=== PATIENT | male | born 1980 | race Caucasian/White ===

== ENCOUNTER 2019-07-21 19:44 | Emergency (ER) | payer OTHER, BC ==
[2019-07-21] MEDS ORDERED: Sodium Chloride 0.9% 10 ML Syringe FLUSH PRN (20:08)
--- NOTE | 2019-07-21 20:08 | EDM.PDOC ---
ED HPI GENERAL MEDICAL PROBLEM - General Chief Complaint: Upper Extremity Injury/Pain Stated Complaint: LT SHOULDER DISLOCATED Time Seen by Provider: 07/21/19 20:02 Source of Information: Reports: Patient History Limitations: Reports: No Limitations - History of Present Illness INITIAL COMMENTS - FREE TEXT/NARRATIVE: Patient is a 39-year-old male who presents with complaints of left shoulder pain. He states he was walking down the stairs and he slipped. He had one hand on the rail and then reached back with his left arm to try to catch himself on the steps, injuring his left shoulder. He has no history of previous injury to this shoulder. Right Upper Arm Pain Score (Numeric/FACES): 5 - Related Data Allergies Allergy/AdvReac Type Severity Reaction Status Date / Time No Known Allergies Allergy Verified 07/21/19 20:02 Home Meds: Home Meds . [No Known Home Meds] 07/21/19 [History] Review of Systems - Review of Systems Review Of Systems: Comprehensive ROS is negative, except as noted in HPI. ED EXAM, GENERAL - Physical Exam Exam: See Below Exam Limited By: No Limitations General Appearance: Alert, WD/WN, No Apparent Distress Respiratory/Chest: No Respiratory Distress, Lungs Clear, Normal Breath Sounds, No Accessory Muscle Use, Chest Non-Tender Cardiovascular: Normal Peripheral Pulses, Regular Rate, Rhythm, No Edema, No Gallop, No JVD, No Murmur, No Rub Extremities: Other (left shoulder is visibly dislocated. Appears to be dislocated anteriorly. CMS intact distal to the injury.) Neurological: Alert, Oriented, CN II-XII Intact, Normal Cognition, Normal Gait, Normal Reflexes, No Motor/Sensory Deficits Psychiatric: Normal Affect, Normal Mood Skin Exam: Warm, Dry, Intact, Normal Color, No Rash Course - Vital Signs Last Recorded V/S: Last Vital Signs Temp 98.8 F 07/21/19 20:05 Pulse 60 07/21/19 20:05 Resp 16 07/21/19 20:05 BP 150/103 H 07/21/19 20:05 Pulse Ox 98 07/21/19 20:05 - Orders/Labs/Meds Orders: Active Orders 24 hr Category Date Time Status Peripheral IV Care [RC] . DIRECTED Care 07/21/19 20:08 Active DME for Discharge [COMM] Stat Oth 07/21/19 20:44 Ordered Peripheral IV Insertion Adult [OM.PC] Stat Oth 07/21/19 20:08 Ordered Meds: Medications Discontinued Medications Generic Name Dose Route Start Last Admin Trade Name Kristy PRN Reason Stop Dose Admin Fentanyl 50 mcg 07/21/19 20:42 07/21/19 21:39 Sublimaze IVPUSH 07/21/19 20:43 Not Given ONETIME ONE Fentanyl Confirm 07/21/19 20:55 07/21/19 21:39 Sublimaze Administered 07/21/19 20:56 Not Given Dose 100 mcg .ROUTE .STK-MED ONE Fentanyl 50 mcg 07/21/19 21:30 07/21/19 21:36 Sublimaze IVPUSH 07/21/19 21:31 50 mcg ONETIME ONE Administration Lactated Ringer's Confirm 07/21/19 21:01 07/21/19 21:39 Ringers, Lactated Administered 07/21/19 21:02 100 mls/hr Dose Administration 1,000 mls @ as directed .ROUTE .STK-MED ONE Midazolam HCl 1 mg 07/21/19 20:43 07/21/19 20:52 Versed 1 Mg/Ml IVPUSH 07/21/19 20:44 1 mg ONETIME ONE Administration Midazolam HCl Confirm 07/21/19 20:55 07/21/19 20:55 Versed 5 Mg/Ml Administered 07/21/19 20:56 1 mg Dose Administration 50 mg .ROUTE .STK-MED ONE Midazolam HCl 2 mg 07/21/19 21:30 07/21/19 21:39 Versed 1 Mg/Ml IVPUSH 07/21/19 21:31 Not Given ONETIME ONE Propofol 100 mg 07/21/19 21:30 07/21/19 21:15 Diprivan 20 Ml IVPUSH 07/21/19 21:31 100 mg ONETIME ONE Administration Sodium Chloride 10 ml 07/21/19 20:08 07/21/19 21:39 Saline Flush FLUSH 10 ml ASDIRECTED PRN Administration Keep Vein Open - Re-Assessments/Exams Free Text/Narrative Re-Assessment/Exam: x-ray showed an anterior dislocated left humerus. manual reduction was attempted without sedation to patient tolerance. Attempts were unsuccessful. Patient was moved to the trauma bay and appropriate monitors and oxygen were applied. Appropriate written consent was obtained. Risks and benefits were discussed with the patient. Bag mask and oral airway were available at bedside. Dr. Derik M.D. assisted with procedure. Patient initially received a total of 100 g of fentanyl in 3 separate doses, as well as 3 mg of Versed in 3 separate doses. He remained alert with stable VS after these medications. Numerous attempts at reduction using external rotation method were unsuccessful. Patient was then administered a total of 100mg of IV propofol by Dr. More. Shoulder was able to be reduced on the first attempt using the external rotation method. Shoulder immobilizer applied. Pt VS remained stable throughout the procedure without manual ventilation. Will discharge home to f/ u with orthopedics once he is fully alert. 07/21/192124 Pt is awake and communicating appropriately. VS and SpO2 stable on RA. He states that his shoulder feels much better and that he is having minimal pain. Pt states that he would like to be able to return to work as tolerated. I will provide him with a work note and instructions to follow-up with orthopedics. Discharge instructions as noted. Departure - Departure Time of Disposition: 21:30 Disposition: Home, Self-Care 01 Condition: Good Clinical Impression: Shoulder dislocation Qualifiers: Encounter type: initial encounter Laterality: left Qualified Code(s): S43.005A - Unspecified dislocation of left shoulder joint, initial encounter - Discharge Information *PRESCRIPTION DRUG MONITORING PROGRAM REVIEWED*: No *COPY OF PRESCRIPTION DRUG MONITORING REPORT IN PATIENT SUZETTE: No Instructions: Shoulder Dislocation, [id number] Referrals: PCP,None [Primary Care Provider] - Collin Rhodes MD [Physician] - Forms: ED Department Discharge, ED Return to Work/School Form Additional Instructions: You were seen in the emergency Department today for a left shoulder dislocation after slipping on the stairs. After appropriate sedation, the shoulder was reduced without difficulty. An immobilizer has been applied to the extremity. It is recommended that you wear this immobilizer at all times; however, you may remove it to shower. Ensure that you do not attempt to move the extremity when the immobilizer is not in place. We recommend that she follow up with orthopedist, Dr. Rhodes, in approximately one week. You may return to work as tolerated without the use of your left arm. You may use [id number] Tylenol or ibuprofen as needed for pain. Ice may also be applied intermittently as needed. If you develop any new or worsening symptoms of concern, please do not hesitate to return to the emergency department. Sepsis Event Note - Focused Exam Date Exam was Performed: 07/22/19 Time Exam was Performed: 15:04 - My Orders Last 24 Hours: My Active Orders 07/21/19 20:08 Peripheral IV Care [RC] . DIRECTED Peripheral IV Insertion Adult [OM.PC] Stat 07/21/19 20:44 DME for Discharge [COMM] Stat - Assessment/Plan Last 24 Hours: My Active Orders 07/21/19 20:08 Peripheral IV Care [RC] . DIRECTED Peripheral IV Insertion Adult [OM.PC] Stat 07/21/19 20:44 DME for Discharge [COMM] Stat
[2019-07-21] MEDS ORDERED: fentaNYL 100 MCG/2 ML SDV IVPUSH ONE (20:42)
[2019-07-21] MEDS ORDERED: Midazolam 1 MG/ML 2 ML SDV IVPUSH ONE ×2 (20:43→21:30)
[2019-07-21] MEDS: fentaNYL 100 MCG/2 ML SDV IVPUSH ONE ×2 (20:52→21:36)
[2019-07-21] MEDS ORDERED: fentaNYL 100 MCG/2 ML SDV ONE (20:55)
[2019-07-21] MEDS ORDERED: Midazolam 5 MG/ML 10 ML MDV ONE (20:55)
[2019-07-21] MEDS ORDERED: Lactated Ringers 1,000 ML ONE (21:01)
[2019-07-21] MEDS ORDERED: Propofol 200 MG/20 ML SDV IVPUSH ONE (21:30)
--- NOTE | 2019-07-22 07:38 | CR ---
Left shoulder: Single AP view of the left shoulder was obtained. Comparison: Prior left shoulder study performed earlier on the same day (8:13 PM). Previous dislocation has been reduced. Glenohumeral alignment appears normal on current study. Hill-Sachs deformity is noted. Impression: 1. Reduction of previous dislocation. 2. Hill-Sachs deformity. Diagnostic code #3 This report was dictated in [place] Standard Time
--- NOTE | 2019-07-22 07:38 | CR ---
Left shoulder: AP view of the left shoulder was obtained as well as a Y scapular view. Anterior subcoracoid dislocation is noted. No additional abnormality is appreciated. Impression: 1. Anterior dislocation of left shoulder. Diagnostic code #3 This report was dictated in [place] Standard Time
== END 2019-07-21 22:08 | disposition home or self-care (01) ==
LOC: JD.ED 19:44
DX: S43.005A Unspecified dislocation of left shoulder joint, initial encounter (principal); W10.9XXA Fall (on) (from) unspecified stairs and steps, initial encounter; Y93.01 Activity, walking, marching and hiking
CPT/HCPCS: 23650; 73020; 73030; 96360; 99284; J2250; J2704; J3010; J7120; 23655; 99283